=== PATIENT | male | born 1995 | race Caucasian/White ===

== ENCOUNTER 2018-09-18 13:51 | Emergency (ER) | payer MEDICAID, SELFPAY ==
[2018-09-18 14:04] VITALS: BP 132/80; PULSE 82; RESP 15; TEMP 36.5; O2SAT 98
--- NOTE | 2018-09-18 15:43 | W.ED.GENAD ---
Discharge Plan Disposition Patient Disposition: HOME Condition: Stable Discharge Details Chief Complaint: RespSymp Clinical Impression: URI (upper respiratory infection), Bronchitis, Sinusitis Primary Care Provider: Isela Bailey ED Provider: Agnes Dubon Home Meds and New Rx's Prescriptions: New methylprednisolone [Medrol (Umair)] 4 mg tablets,dose pack 4 mg PO DIRECTED Qty: 21 RF: 0 azithromycin [Zithromax] 500 mg tablet 500 mg PO DAILY 5 Days Qty: 5 RF: 0 Continued epinephrine [EpiPen 2-Umair] 0.3 MG/0.3 ML auto-injector 0.3 mg IM ONCE RF: 0 Discharge Instructions Instructions: Sinusitis (ED), Acute Bronchitis (ED) Additional Instructions: Alternate Tylenol and Motrin as needed and directed for pain. Take the steroids until finished. If you have no relief in symptoms over the next 1-2 days, you may start the antibiotics. Follow-up with your primary care doctor in 1 week for reevaluation. Return immediately to the emergency department any worsening or new concerning symptoms. Stand Alone Forms: Work Release Discharge Data Discharge Physician: Agnes Dubon Medical Decision Making 23-year-old male who presents with green nasal drainage, cough with green sputum, chest congestion and shortness of breath for the past 4 days. Took 5 doses of his girlfriends doxycycline antibiotic but with no relief. Vitals within normal limits. Patient appears nontoxic and in no acute distress. Airway intact and he is speaking full sentences. Normal ENT exam. Lungs clear to auscultation. Differential diagnosis includes viral URI, bronchitis, sinusitis. Will treat with Medrol Dosepak. Also advised to use saline nose spray, alternate Tylenol and Motrin, and to take [id number] cough and cold medicine. If he has no relief in symptoms of the next 2 days, he may start the antibiotics. HPI General Mode of arrival: ambulatory. Date/Time Provider Initiated Documentation: 09/18/18 14:44. Limitations to Documentation: no limitations. Information obtained by: patient. HPI Narrative: Patient is a 23-year-old male who presents the ED with cough with of green sputum, shortness of breath, headache, and chest congestion for the past 4 days. Patient states his girlfriend was diagnosed with pneumonia recently and states he took 5 tabs of her doxycycline over the past few days. He denies any relief of symptoms with the antibiotics and states his symptoms are worse. Patient states he has been eating and drinking normally. He denies any sore throat or neck pain. Related Data Home Medications Medication Instructions Recorded Confirmed epinephrine [EpiPen 2-Umair] 0.3 mg IM ONCE 08/23/14 09/18/18 azithromycin [Zithromax] 500 mg PO DAILY 5 Days #5 tab 09/18/18 methylprednisolone [Medrol (Umair)] 4 mg PO DIRECTED #21 dose pk 09/18/18 Previous Rx's Medication Instructions Recorded azithromycin [Zithromax] 500 mg PO DAILY 5 Days #5 tab 09/18/18 methylprednisolone [Medrol (Umair)] 4 mg PO DIRECTED #21 dose pk 09/18/18 Allergies Allergy/AdvReac Type Severity Reaction Status Date / Time BEESTINGS Allergy Severe SHOCK Uncoded 08/23/14 08:37 tabacco Allergy Intermediate Uncoded 11/17/12 14:28 General Stated Complaint: RespSymp MINH: 4 Review of Systems Review of Systems All systems reviewed & are unremarkable except as noted in HPI and below Constitutional Reports as per HPI, Denies chills and Denies fever(s) Eyes Denies blurry vision ENT Denies dizziness, Denies sore throat and Denies throat swelling Cardiovascular Denies chest pain and Reports dyspnea Respiratory Reports chest congestion, Reports cough and Reports dyspnea Gastrointestinal Denies abdominal pain, Denies diarrhea and Denies vomiting Genitourinary Denies hematuria and Denies dysuria Musculoskeletal Denies back pain and Denies numbness Integumentary/Breasts Denies lesions and Denies rash Neurologic Denies dizziness and Denies numbness Allergic/Immunologic Denies throat swelling [facility] Medical History ADHD (Acute) Surgical History History of tonsillectomy (Chronic) Social History Smoking/Tobacco Use Status: Never alcohol intake: current alcohol intake frequency: a few times a month substance use type: marijuana Exam Const General: cooperative, healthy appearing and no acute distress HENMT Head: normal to inspection Ears: hearing grossly normal bilaterally, external ears normal and TM's normal bilaterally General nose exam: external nose normal Face and sinus: normal facial exam and sinuses nontender Mouth: oral mucosae normal Throat: posterior oropharynx normal Eyes General: appearance normal, both eyes and all related structures Pupils: PERRL EOM: EOM intact bilaterally Neck Neck: normal visual inspection and No submandibular swelling Lymphatic: no lymphadenopathy noted Chest Chest: normal inspection of the chest and no tenderness Resp Effort & Inspection: normal respiratory effort and able to speak in complete sentences Auscultation: clear to auscultation bilaterally, no rhonchi and no wheezes Cardio Rate: regular rate Rhythm: regular rhythm GI Palpation: soft, not firm, not rigid and nontender Male General Exam: Yes normal external exam Skin General skin exam: no rashes or lesions noted Neuro General: alert, awake and oriented x3 Cognition: normal cognition Speech: speech normal Motor: muscle tone normal throughout Sensory Exam: no sensory deficits noted Extrem General: full ROM Psych Appearance: grossly normal Mental Status: mental status grossly normal Speech and Movement: speech and movement normal Affect: normal affect Course Vital Signs Temperature 97.7 F 09/18/18 14:04 Pulse 82 09/18/18 14:04 Respiratory Rate 15 09/18/18 14:04 Blood Pressure 132/80 09/18/18 14:04 Pulse Oximetry 98 09/18/18 14:04 Temperature 97.7 F 09/18/18 14:04 Temperature Source Temporal Artery Scan 09/18/18 14:04 Pulse 82 09/18/18 14:04 Respiratory Rate 15 09/18/18 14:04 Respiratory Effort 09/18/18 15:33 Respiratory Depth Normal 09/18/18 15:33 Blood Pressure 132/80 09/18/18 14:04 Blood Pressure Position Sitting 09/18/18 14:04 Pulse Oximetry 98 09/18/18 14:04 Oxygen Delivery Method Room Air 09/18/18 14:04 Oxygen Flow Rate 0 09/18/18 14:04 Pain Level 4 09/18/18 14:04
--- NOTE | 2018-09-18 15:49 | ED.GENADUL_ITS ---
Discharge Plan Disposition Patient Disposition: HOME Condition: Stable Discharge Details Chief Complaint: RespSymp Clinical Impression: URI (upper respiratory infection), Bronchitis, Sinusitis Primary Care Provider: Isela Bailey ED Provider: Agnes Dubon Home Meds and New Rx's Prescriptions: New methylprednisolone [Medrol (Umair)] 4 mg tablets,dose pack 4 mg PO DIRECTED Qty: 21 RF: 0 azithromycin [Zithromax] 500 mg tablet 500 mg PO DAILY 5 Days Qty: 5 RF: 0 Continued epinephrine [EpiPen 2-Umair] 0.3 MG/0.3 ML auto-injector 0.3 mg IM ONCE RF: 0 Discharge Instructions Instructions: Sinusitis (ED), Acute Bronchitis (ED) Additional Instructions: Alternate Tylenol and Motrin as needed and directed for pain. Take the steroids until finished. If you have no relief in symptoms over the next 1-2 days, you may start the antibiotics. Follow-up with your primary care doctor in 1 week for reevaluation. Return immediately to the emergency department any worsening or new concerning symptoms. Stand Alone Forms: Work Release Discharge Data Discharge Physician: Agnes Dubon Medical Decision Making 23-year-old male who presents with green nasal drainage, cough with green sputu m, chest congestion and shortness of breath for the past 4 days. Took 5 doses of his girlfriends doxycycline antibiotic but with no relief. Vitals within normal limits. Patient appears nontoxic and in no acute distress. Airway intact and he is speaking full sentences. Normal ENT exam. Lungs clear to auscultation. Differential diagnosis includes viral URI, bronchitis, sinusitis. Will treat with Medrol Dosepak. Also advised to use saline nose spray, alternate Tylenol and Motrin, and to take [id number] cough and cold medicine. If he has no relief in symptoms of the next 2 days, he may start the antibiotics. HPI General Mode of arrival: ambulatory . Date/Time Provider Initiated Documentation: 09/18/18 14:44 . Limitations to Documentation: no limitations . Information obtained by: patient . HPI Narrative: Patient is a 23-year-old male who presents the ED with cough with of green sputum, shortness of breath, headache, and chest congestion for the past 4 days. Patient states his girlfriend was diagnosed with pneumonia recently and states he took 5 tabs of her doxycycline over the past few days. He denies any relief of symptoms with the antibiotics and states his symptoms are worse. Patient states he has been eating and drinking normally. He denies any sore throat or neck pain. Related Data Home Medications Medication Instructions Recorded Confirmed epinephrine [EpiPen 2-Umair] 0.3 mg IM ONCE 08/23/14 09/18/18 azithromycin [Zithromax] 500 mg PO DAILY 5 Days #5 tab 09/18/18 methylprednisolone [Medrol (Umair)] 4 mg PO DIRECTED #21 dose pk 09/18/18 Previous Rx's Medication Instructions Recorded azithromycin [Zithromax] 500 mg PO DAILY 5 Days #5 tab 09/18/18 methylprednisolone [Medrol (Umari)] 4 mg PO DIRECTED #21 dose pk 09/18/18 Allergies Allergy/AdvReac Type Severity Reaction Status Date / Time BEESTINGS Allergy Severe SHOCK Uncoded 08/23/14 08:37 tabacco Allergy Intermediate Uncoded 11/17/12 14:28 General Stated Complaint: RespSymp MINH: 4 Review of Systems Review of Systems All systems reviewed & are unremarkable except as noted in HPI and below Constitutional Reports as per HPI, Denies chills and Denies fever(s) Eyes Denies blurry vision ENT Denies dizziness, Denies sore throat and Denies throat swelling Cardiovascular Denies chest pain and Reports dyspnea Respiratory Reports chest congestion, Reports cough and Reports dyspnea Gastrointestinal Denies abdominal pain, Denies diarrhea and Denies vomiting Genitourinary Denies hematuria and Denies dysuria Musculoskeletal Denies back pain and Denies numbness Integumentary/Breasts Denies lesions and Denies rash Neurologic Denies dizziness and Denies numbness Allergic/Immunologic Denies throat swelling [facility] Medical History ADHD (Acute) Surgical History History of tonsillectomy (Chronic) Social History Smoking/Tobacco Use Status: Never alcohol intake: current alcohol intake frequency: a few times a month substance use type: marijuana Exam Const General: cooperative, healthy appearing and no acute distress HENMT Head: normal to inspection Ears: hearing grossly normal bilaterally, external ears normal and TM's normal bilaterally General nose exam: external nose normal Face and sinus: normal facial exam and sinuses nontender Mouth: oral mucosae normal Throat: posterior oropharynx normal Eyes General: appearance normal, both eyes and all related structures Pupils: PERRL EOM: EOM intact bilaterally Neck Neck: normal visual inspection and No submandibular swelling Lymphatic: no lymphadenopathy noted Chest Chest: normal inspection of the chest and no tenderness Resp Effort & Inspection: normal respiratory effort and able to speak in complete sentences Auscultation: clear to auscultation bilaterally, no rhonchi and no wheezes Cardio Rate: regular rate Rhythm: regular rhythm GI Palpation: soft, not firm, not rigid and nontender Male General Exam: Yes normal external exam Skin General skin exam: no rashes or lesions noted Neuro General: alert, awake and oriented x3 Cognition: normal cognition Speech: speech normal Motor: muscle tone normal throughout Sensory Exam: no sensory deficits noted Extrem General: full ROM Psych Appearance: grossly normal Mental Status: mental status grossly normal Speech and Movement: speech and movement normal Affect: normal affect Course Vital Signs Temperature 97.7 F 09/18/18 14:04 Pulse 82 09/18/18 14:04 Respiratory Rate 15 09/18/18 14:04 Blood Pressure 132/80 09/18/18 14:04 Pulse Oximetry 98 09/18/18 14:04 Temperature 97.7 F 09/18/18 14:04 Temperature Source Temporal Artery Scan 09/18/18 14:04 Pulse 82 09/18/18 14:04 Respiratory Rate 15 09/18/18 14:04 Respiratory Effort 09/18/18 15:33 Respiratory Depth Normal 09/18/18 15:33 Blood Pressure 132/80 09/18/18 14:04 Blood Pressure Position Sitting 09/18/18 14:04 Pulse Oximetry 98 09/18/18 14:04 Oxygen Delivery Method Room Air 09/18/18 14:04 Oxygen Flow Rate 0 09/18/18 14:04 Pain Level 4 09/18/18 14:04
== END 2018-09-18 16:00 | disposition home or self-care (01) ==
LOC: ER 15:57
PROVIDERS: Emergency Provider Physician Assistant; PCP Nurse Practitioner Family
DX: J06.9 Acute upper respiratory infection, unspecified (principal); J40 Bronchitis, not specified as acute or chronic; J32.9 Chronic sinusitis, unspecified
CPT/HCPCS: 99283